=== PATIENT | male | born 1995 ===

== ENCOUNTER 2017-05-17 19:40 | Emergency (ER) | payer MEDICAID ==
[2017-05-17 19:47] VITALS: BMI 22.7
[2017-05-17 19:49] VITALS: BP 143/75; PULSE 79; RESP 18; TEMP 98; O2SAT 99
--- NOTE | 2017-05-17 19:55 | ED PDOC ---
Arrival/HPI - General Chief Complaint: Lower Extremity Problem/Injury Time Seen by Provider: 05/17/17 19:52 - History of Present Illness Narrative History of Present Illness (Text): 05/17/17 19:59 22yo male with L. knee pain for the past few days. Pt states he tried to prevent himself from falling and has had anterior knee pain since then. Denies any fall. States his back has also been hurting since. No other complaints. Past Medical History - Provider Review Nursing Documentation Reviewed: Yes - Infectious Disease Hx of Infectious Diseases: None - Psychiatric Hx Substance Use: No - Anesthesia Hx Anesthesia: No - Suicidal Assessment Feels Threatened In Home Enviroment: No Family/Social History Family/Social History: Unknown Family HX Smoking Status: Current Some Days Smoker Hx Alcohol Use: No Hx Substance Use: No Allergies/Home Meds Allergies/Adverse Reactions: Allergies No Known Allergies Allergy (Verified 03/24/15 00:18) Home Medications: Home Meds Medication Instructions Recorded Confirmed No Known Home Med 05/17/17 05/17/17 Physical Exam - Physical Exam Narrative Physical Exam (Text): 05/17/17 20:02 - Review of Systems Constitutional: Normal. absent: Fatigue, Weight Change, Fevers Eyes: Normal ENT: denies sore throat, denies tristhmus Respiratory: Normal. absent: SOB, Cough, Sputum Cardiovascular: absent: Chest Pain, Palpitations, Syncope Gastrointestinal: Normal. absent: Abdominal Pain, Diarrhea, Nausea, Vomiting Genitourinary: Normal. absent: Dysuria, Frequency, Hematuria Musculoskeletal: back pain. knee pain. absent: Arthralgias, Neck Pain Skin: no rashes, no erythema Neurological: absent: Focal Weakness Endocrine: Normal Hemo/Lymphatic: Normal Psychiatric: No suicidal or homicidal ideations Physical exam Patient appears age appropriate in no distress, speaking full sentences without difficulty Increased hypertonicity appreciated in the L. lower lumbar region, pain quality reproduced with palpation. No midline tenderness. FROM of pt's cervical, thoracic, lumbar, and sacral regions appreciated, active/passive without any difficulty. Lower extremities with full neurological and vascular intact. Steady gait. L. knee with full active and active ROM, neg. ant/post drawer tests. 5/5 strength. +pulses, no swelling. ambulates with steady gait. L. hip and ankle unremarkable on examination. - Systems Exam Head: Present: Atraumatic, Normocephalic Pupils: Present: PERRL Extroacular Muscles: Present: EOMI Conjunctiva: Present: Normal Mouth: Present: Moist Mucous Membranes Neck: Present: Normal Range of Motion. No: MIDLINE TENDERNESS, Paraspinal Tenderness Respiratory/Chest: Present: Clear to Auscultation, Good Air Exchange. No: Respiratory Distress, Accessory Muscle Use, Tachypneic Cardiovascular: Present: Regular Rate and Rhythm, Normal S1, S2, Peripheal Pulses Present. No: Murmurs Abdomen: Present: Normal Bowel Sounds. No: Tenderness, Distention, Peritoneal Signs, Rebound, Guarding Back: No: Midline Tenderness Upper Extremity: Present: Normal Inspection. No: Cyanosis, Edema Lower Extremity: Present: Normal Inspection. No: Edema Neurological: Present: GCS=15, Speech Normal, cranial nerves II through XII fully intact with no cerebellar abnormality, neurosensory fully intact. No focal neurological deficits. Skin: Present: Warm, Dry, Normal Color. No: Rashes Lymphatic: Present: OX3, NI, NC Psychiatric: Present: Alert, Oriented x 3, Normal Insight, Normal Concentration Vital Signs Reviewed: Yes Vital Signs Temp Pulse Resp BP Pulse Ox 05/17/17 19:49 98.0 F 79 18 143/75 99 Temperature: Afebrile Blood Pressure: Normal Pulse: Regular Respiratory Rate: Normal Appearance: Positive for: Well-Appearing Pain Distress: None Mental Status: Positive for: Alert and Oriented X 3 Medical Decision Making ED Course and Treatment: 05/17/17 20:06 based on hx ang PE, explained to pt that there is no need for emergent imaging at this time. Pt verbalized understanding that if pain persists, he needs to f/ u with ortho specialist for further w/u pt verbalized understanding of discussion and plan advised to take NSAIDS for pain, per pharmacy instructions Pt states he understands to return to the ER right away for new or worsening symptoms or for inability to f/u with PMD or specialist as instructed. Patient states that he fully agrees with and understands discharge instructions. States that he agrees with the plan and disposition. Verbalized and repeated discharge instructions and plan. I have given the patient opportunity to ask any additional questions. Disposition/Present on Arrival - Present on Arrival Any Indicators Present on Arrival: No History of DVT/PE: No History of Uncontrolled Diabetes: No Urinary Catheter: No History of Decub. Ulcer: No History Surgical Site Infection Following: None - Disposition Have Diagnosis and Disposition been Completed?: Yes Diagnosis: Knee pain Disposition: HOME/ ROUTINE Disposition Time: 19:52 Patient Plan: Discharge Condition: GOOD Discharge Instructions (ExitCare): Knee Pain (ED) Additional Instructions: PLEASE RETURN TO THE EMERGENCY DEPARTMENT FOR NEW OR WORSENING SYMPTOMS. RETURN RIGHT AWAY IF YOU CANNOT FOLLOW UP WITH YOUR PRIMARY CARE DOCTOR, CLINIC, OR SPECIALIST IN 1-2 DAYS. PLEASE TAKE [id number] MOTRIN OR ADVIL FOR PAIN , PER PHARMACY INSTRUCTIONS Referrals: Favio Paz, [Staff Provider] - Follow up with primary Forms: [facility] (Yi), WORK NOTE
== END 2017-05-17 20:20 | disposition home or self-care (01) ==
LOC: ED 19:40
DX: M25.562 Pain in left knee (principal)

== ENCOUNTER 2017-05-24 10:13 | Emergency (ER) | payer MEDICAID ==
[2017-05-24 10:13] VITALS: BMI 22.7
[2017-05-24 10:41] VITALS: TEMP 98.8
[2017-05-24] MEDS ORDERED: Sodium Chloride 0.9% 1,000 ML IV STA (11:08)
[2017-05-24] MEDS ORDERED: Famotidine 20mg/50ml 50 ML IV STA (11:08)
--- NOTE | 2017-05-24 11:17 | ED PDOC ---
Arrival/HPI - General Chief Complaint: Abdominal Pain Time Seen by Provider: 05/24/17 10:47 Historian: Patient - History of Present Illness Narrative History of Present Illness (Text): 05/24/17 11:05 A 22 year old male, who denies any significant past medical history, presents to the emergency department for nausea with 1 episode of vomiting and abdominal pain with loose stools, which began 2 days ago. The patient reports his episode of vomiting was non-bilious and non-hematemesis. The patient reports nothing helps or worsens his pain and he states the pain is mostly on his left side. The patient denies any fever, chest pain, appetite changes, or any other complaints at this time. Time/Duration: < week (x 2 days ) Symptom Onset: Sudden Symptom Course: Unchanged Quality: Cramping Activities at Onset: Light Context: Home Past Medical History - Provider Review Nursing Documentation Reviewed: Yes - Infectious Disease Hx of Infectious Diseases: None - Psychiatric Hx Substance Use: No - Anesthesia Hx Anesthesia: No - Suicidal Assessment Feels Threatened In Home Enviroment: No Family/Social History - Physician Review Nursing Documentation Reviewed: Yes Family/Social History: Unknown Family HX Smoking Status: Heavy Smoker > 10 Cigarettes Daily Hx Alcohol Use: Yes Frequency of alcohol use: Daily Hx Substance Use: No Allergies/Home Meds Allergies/Adverse Reactions: Allergies No Known Allergies Allergy (Verified 05/24/17 10:25) Physical Exam - Physical Exam Narrative Physical Exam (Text): 05/24/17 11:18 - Review of Systems Constitutional: Normal. absent: Fatigue, Weight Change, Fevers Eyes: Normal ENT: denies sore throat, denies tristhmus Respiratory: Normal. absent: SOB, Cough, Sputum Cardiovascular: absent: Chest Pain, Palpitations, Syncope Gastrointestinal: Normal. absent: Abdominal Pain, Diarrhea, Nausea, Vomiting Genitourinary: Normal. absent: Dysuria, Frequency, Hematuria Musculoskeletal: Normal. absent: Arthralgias, Back Pain, Neck Pain Skin: no rashes, no erythema Neurological: absent: Focal Weakness Endocrine: Normal Hemo/Lymphatic: Normal Psychiatric: No suicidal or homicidal ideations Physical exam Patient appears age appropriate in no distress, speaking full sentences without difficulty - Systems Exam Head: Present: Atraumatic, Normocephalic Pupils: Present: PERRL Extroacular Muscles: Present: EOMI Conjunctiva: Present: Normal Mouth: Present: Moist Mucous Membranes Neck: Present: Normal Range of Motion. No: MIDLINE TENDERNESS, Paraspinal Tenderness Respiratory/Chest: Present: Clear to Auscultation, Good Air Exchange. No: Respiratory Distress, Accessory Muscle Use, Tachypneic Cardiovascular: Present: Regular Rate and Rhythm, Normal S1, S2, Peripheal Pulses Present. No: Murmurs Abdomen: Present: Normal Bowel Sounds, Mild left lower quadrant tenderness. No : No Mcburney's point tenderness, Distention, Peritoneal Signs, Rebound, Guarding Back: Present: Normal Inspection. No: Midline Tenderness, Paraspinal Tenderness Upper Extremity: Present: Normal Inspection. No: Cyanosis, Edema Lower Extremity: Present: Normal Inspection. No: Edema Neurological: Present: GCS=15, Speech Normal, cranial nerves II through XII fully intact with no cerebellar abnormality, neurosensory fully intact. No focal neurological deficits. Skin: Present: Warm, Dry, Normal Color. No: Rashes Lymphatic: Present: OX3, NI, NC Psychiatric: Present: Alert, Oriented x 3, Normal Insight, Normal Concentration Vital Signs Temp Pulse Resp BP Pulse Ox 05/24/17 12:13 60 18 110/70 98 05/24/17 10:27 98.8 F 55 L 17 106/69 99 Medical Decision Making ED Course and Treatment: 05/24/17 11:19 Impression: A 22 year old male with abdominal pain. LLQ tenderness to palpation on examination. Differential Diagnosis included but are not limited to: cholecystitis vs. Gastroenteritis vs. Nonspecific abdominal pain Plan: -- Abd & Pelvis CT -- Labs -- Toradol, Zofran, Pepcid, IV fluids -- Reassess and disposition Progress Notes: 05/24/17 13:59 CT IMPRESSION: 1. No CT evidence for cholelithiasis. Small amount of pericholecystic fluid is of uncertain etiology and can be associated with primary gallbladder pathology or secondary systemic disease. 2. Mild periportal edema is also nonspecific however can be seen with hepatitis , hepatic congestion and cholangitis. pt has no RUQ tenderness to palpation no suspicion for GB disease On reevaluation, patient reports that she feels much better and would like to be discharged home. Patient's repeat abdominal exam is soft, nontender, non distended with positive bowel sounds in all 4 quadrants and no peritoneal signs. Patient is tolerating PO without any difficulty. Pt states he understands to return to the ER right away for new or worsening symptoms or for inability to f/u with PMD or specialist as instructed. Patient states that he fully agrees with and understands discharge instructions. States that she agrees with the plan and disposition. Verbalized and repeated discharge instructions and plan. I have given the patient opportunity to ask any additional questions. - Lab Interpretations Lab Results: 05/24/17 11:15 05/24/17 11:15 Lab Results 05/24/17 11:15: Sodium 144, Potassium 4.1, Chloride 105, Carbon Dioxide 28, Anion Gap 15, BUN 12, Creatinine 0.8, Est GFR ( Amer) > 60, Est GFR (Non- Af Amer) > 60, Random Glucose 84, Calcium 9.5, Total Bilirubin 0.7, AST 23, ALT 29, Alkaline Phosphatase 53, Total Protein 7.0, Albumin 4.4, Globulin 2.6, Albumin/Globulin Ratio 1.7, Lipase 40 05/24/17 11:15: PT 11.4, INR 1.06, APTT 26.4 05/24/17 11:15: WBC 5.4, RBC 5.43, Hgb 12.4 L, Hct 37.0 L, MCV 68.1 L, MCH 22.8 L, MCHC 33.5, RDW 16.0 H, Plt Count 268, MPV 9.2, Gran % 57.3, Lymph % (Auto) 25.2, [place] % (Auto) 12.1 H, Eos % (Auto) 5.0, Baso % (Auto) 0.4, Gran # 3.12, Lymph # 1.4, [place] # 0.7 H, Eos # 0.3, Baso # 0.02 - RAD Interpretation Radiology Orders: 05/24/17 11:14 ABD & PELVIS IV CONTRAST ONLY [CT] Stat - Medication Orders Current Medication Orders: Discontinued Medications Sodium Chloride (Sodium Chloride 0.9%) 1,000 mls @ 1,000 mls/hr IV .Q1H STA Stop: 05/24/17 12:07 Last Admin: 05/24/17 11:39 Dose: 1,000 mls/hr eMAR Start Stop Document 05/24/17 11:39 SF (Rec: 05/24/17 11:39 SF [email or web address] Intravenous Solution Start Date 05/24/17 Start Time 11:20 End Date 05/24/17 End time 12:20 Total Infusion Time 60 Famotidine (Pepcid 20mg/50ml Premix) 20 mg in 50 mls @ 100 mls/hr IV STAT STA Stop: 05/24/17 11:56 Last Admin: 05/24/17 11:40 Dose: 100 mls/hr eMAR Start Stop Document 05/24/17 11:40 SF (Rec: 05/24/17 11:40 [email or web address] Intravenous Solution Start Date 05/24/17 Start Time 11:40 End Date 05/24/17 End time 12:10 Total Infusion Time 30 Ketorolac Tromethamine (Toradol) 30 mg IVP STAT STA Stop: 05/24/17 11:09 Last Admin: 05/24/17 11:39 Dose: 30 mg MAR Pain Assessment Document 05/24/17 11:39 SF (Rec: 05/24/17 11:39 [email or web address] Pain Reassessment Is this a pain reassessment? Yes Sleep Is patient sleeping during reassessment? No Presence of Pain Presence of Pain Yes IVP Administration Document 05/24/17 11:39 SF (Rec: 05/24/17 11:39 SF [email or web address] Charges for Administration # of IVP Administrations 1 Ondansetron HCl (Zofran Inj) 4 mg IVP STAT STA Stop: 05/24/17 11:09 Last Admin: 05/24/17 11:39 Dose: 4 mg IVP Administration Document 05/24/17 11:39 SF (Rec: 05/24/17 11:40 SF [email or web address] Charges for Administration # of IVP Administrations 1 - Scribe Statement The provider has reviewed the documentation as recorded by the Scribgerson Snyder Provider Scribe Attestation: All medical record entries made by the Scribe were at my direction and personally dictated by me. I have reviewed the chart and agree that the record accurately reflects my personal performance of the history, physical exam, medical decision making, and the department course for this patient. I have also personally directed, reviewed, and agree with the discharge instructions and disposition. Disposition/Present on Arrival - Present on Arrival Any Indicators Present on Arrival: No History of DVT/PE: No History of Uncontrolled Diabetes: No Urinary Catheter: No History of Decub. Ulcer: No History Surgical Site Infection Following: None - Disposition Have Diagnosis and Disposition been Completed?: Yes Diagnosis: Abdominal pain Disposition: HOME/ ROUTINE Disposition Time: 14:01 Patient Plan: Discharge Condition: GOOD Discharge Instructions (ExitCare): Abdominal Pain (ED) Additional Instructions: PLEASE RETURN TO THE EMERGENCY DEPARTMENT FOR NEW OR WORSENING SYMPTOMS. RETURN RIGHT AWAY IF YOU CANNOT FOLLOW UP WITH YOUR PRIMARY CARE DOCTOR, CLINIC, OR SPECIALIST IN 1-2 DAYS. Prescriptions: Ibuprofen [Motrin] 600 mg PO Q8 PRN #12 tab PRN Reason: Pain, Moderate (4-7) Ondansetron [Zofran Odt] 4 mg PO Q6 PRN #14 odt PRN Reason: Nausea/Vomiting Referrals: PCP,NO [Primary Care Provider] - Follow up with primary Nat Be MD [Staff Provider] - Follow up with primary [facility] [place] - Follow up with primary Forms: [facility] (Uzbek), WORK NOTE
[2017-05-24] MEDS ORDERED: Famotidine 20mg/50ml 20 MG/50 ML BAG IV STA (11:27)
[2017-05-24 11:30] LABS: BASO # 0.02 K/mm3 (0.0-2.0); BASO % 0.4 % (0.0-3.0); EOS # 0.3 (0.0-0.7); GRAN # 3.12 (1.4-6.5); GRAN % 57.3 % (50.0-68.0); LYMPH # 1.4 (1.2-3.4); LYMPH % 25.2 % (22.0-35.0); MEAN CELL VOLUME 68.1 fl (80.0-105.0); MEAN CORPUSCULAR HEMOGLOBIN 22.8 pg (25.0-35.0); MEAN CORPUSCULAR HGB CONC 33.5 g/dl (31.0-37.0); MEAN PLATELET VOLUME 9.2 fl (7.0-11.0); MONO # 0.7 (0.1-0.6); MONO % 12.1 % (1.0-6.0); WHITE BLOOD COUNT 5.4 10^3/ul (4.5-11.0)
[2017-05-24 11:36] LABS: ALB/GLOB RATIO 1.7 (1.1-1.8); ALKALINE PHOSPHATASE 53 U/L (38-126); ALT/SGPT 29 U/L (7-56); AST/SGOT 23 U/L (17-59); BILIRUBIN,TOTAL 0.7 mg/dL (0.2-1.3); BLOOD UREA NITROGEN 12 mg/dL (7-21); CALCIUM 9.5 mg/dL (8.4-10.5); CARBON DIOXIDE 28 mmol/L (21-33); CHLORIDE 105 mmol/L (98-107); GFR AFRICAN-AMERICAN > 60; GLUCOSE,RANDOM 84 mg/dL (70-110); LIPASE 40 U/L (23-300); POTASSIUM 4.1 mmol/L (3.6-5.0); SODIUM 144 mmol/L (132-148)
[2017-05-24 11:38] LABS: INR 1.06 (0.93-1.08); PARTIAL THROMBOPLASTIN TIME 26.4 Seconds (23.7-30.8)
[2017-05-24] MEDS ORDERED: Iohexol 350 MG/100 ML VIAL ONE (12:05)
--- NOTE | 2017-05-24 12:56 | CT ---
PROCEDURE: CT Abdomen and Pelvis with contrast HISTORY: Abdominal pain COMPARISON: None. TECHNIQUE: CT scan of the abdomen and pelvis was performed after intravenous administration of contrast. Oral contrast was not administered. Coronal and sagittal reformatted images were obtained. Radiation dose: Total exam DLP = 250.55 MGy-cm. This CT exam was performed using one or more of the following dose reduction techniques: Automated exposure control, adjustment of the mA and/or kV according to patient size, and/or use of iterative reconstruction technique. FINDINGS: LOWER THORAX: The lung bases are clear. LIVER: The liver is normal in size. No focal mass. There is mild periportal edema, nonspecific. GALLBLADDER AND BILE DUCTS: There are no calcified gallstones. There is a small amount of pericholecystic fluid. PANCREAS: The pancreas is normal in size and there is homogeneous enhancement without ductal dilatation or focal mass. SPLEEN: The spleen is normal in size and there is homogeneous enhancement without focal mass. ADRENALS: Both adrenal glands are normal in size without discrete nodule. KIDNEYS AND URETERS: Both kidneys are normal in size and there is homogeneous enhancement without hydronephrosis or focal mass. VASCULATURE: No aortic aneurysm. BOWEL: The small bowel loops are normal in caliber. There is moderate amount of stool in the colon. APPENDIX: Normal appendix. PERITONEUM: No free fluid. No free air. LYMPH NODES: No enlarged lymph nodes. BLADDER: Normal in appearance. REPRODUCTIVE: The prostate gland is normal in size. BONES: No acute fracture. Within normal limits for the patient's age. OTHER FINDINGS: None. IMPRESSION: 1. No CT evidence for cholelithiasis. Small amount of pericholecystic fluid is of uncertain etiology and can be associated with primary gallbladder pathology or secondary systemic disease. 2. Mild periportal edema is also nonspecific however can be seen with hepatitis, hepatic congestion and cholangitis.
[2017-05-24 14:33] VITALS: BP 111/75; PULSE 65; RESP 17; O2SAT 100
== END 2017-05-24 14:30 | disposition home or self-care (01) ==
LOC: ED 10:13
DX: R10.9 Unspecified abdominal pain (principal)
CPT/HCPCS: 74177; 80053; 83690; 85025; 85610; 85730; 96365; 96375; 99285; J1885; J2405; J7040; Q9967

== ENCOUNTER 2018-08-30 08:26 | Emergency (ER) | payer OTHER, BC ==
[2018-08-30 08:31] VITALS: RESP 18; BMI 27.4
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
--- NOTE | 2018-08-30 10:14 | RAD ---
Date of service: 08/30/2018 PROCEDURE: Cervical Spine Radiographs. HISTORY: Pain. COMPARISON: None available. FINDINGS: Limited study. BONES: Straightening of the normal cervical lordosis may be related to muscle spasm or positioning. Alignment otherwise maintained. No acute displaced fracture identified. Dens tip obscured. DISC SPACES: Unremarkable. SOFT TISSUES: Unremarkable. No prevertebral soft tissue swelling. OTHER FINDINGS: None. IMPRESSION: Limited study. Dens tip obscured. Straightening of the normal cervical lordosis may be related to muscle spasm or positioning. No acute displaced fracture identified.
[2018-08-30 10:37] VITALS: BP 120/74; PULSE 80; TEMP 98.2; O2SAT 98
== END 2018-08-30 10:34 | disposition home or self-care (01) ==
LOC: ED 08:26
DX: M54.2 Cervicalgia (principal); M54.9 Dorsalgia, unspecified